=== PATIENT | female | born 1955 | race Caucasian/White ===

== ENCOUNTER 2019-03-05 02:35 | Emergency (ER) | payer OTHER ==
--- NOTE | 2019-03-05 03:21 | ED Physician Documentation ---
General Adult - HISTORIAN Historian: patient, spouse - HPI Stated Complaint: Near syncope, Nausea Chief Complaint: Near Syncope Additional Information: Ms. Coburn is a 63 year old coming to the ER via EMS [facility]. She states that she was well today. She had been at home watching golf and later went to the [employer] with her . She stated that she was doing fine and all of a sudden felt weak, nauseated, and couldn't stand up. Per EMS, she was unresponsive and had urinated in her pants prior to getting in the ambulance. Once in the ambulance, she was able to respond and vital signs were stable. When she was with EMS, she did receive Zofran for nausea and she seemed to start having a reaction to the medicine. She reported hives and erythema on her left arm. Rest of HPI as documented. 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 denies: fever, sweating, recent illness EYES/ENT: none CVS/RESP: none GI/: other (bladder incontinence) MS/SKIN/LYMPH: none NEURO/PSYCH: fainting, dizziness, difficulty walking, difficulty with speech - PAST HX Past History: AMI Surgeries/Procedures: cardiac stent, other (back surgery) - SOCIAL HX Smoking History: greater than 1 pack/day (50 pack year history) Alcohol Use: occasionally (6 beers today) Drug Use: none - FAMILY HX Family History: No - VITAL SIGNS Vital Signs: Vital Signs Temp Pulse Resp BP Pulse Ox 97.1 F L 79 14 148/63 94 03/05/19 02:39 03/05/19 02:39 03/05/19 02:39 03/05/19 02:39 03/05/19 02:39 - REVIEWED ASSESSMENTS Nursing Assessment Reviewed: Yes Vitals Reviewed: Yes Progress - EKG/XRAY/CT EKG: NSR Comments: normal EKG ED Results Lab/Radiology - Orders Orders: ED Orders Category Date Time Status IV Started NOW Care 03/05/19 03:19 Active CBC/PLATELET/DIFF Routine Lab 03/05/19 Ordered CMP Routine Lab 04/15/19 Ordered URINALYSIS Routine Lab 03/05/19 Uncollected EKG WITH COMPARISON Routine Ther 03/05/19 03:18 Ordered General Adult Physical Exam - PHYSICAL EXAM GENERAL APPEARANCE: no distress EENT: eye inspection normal, no signs of dehydration NECK: normal inspection RESPIRATORY: no resp distress, chest non-tender, breath sounds normal CVS: reg rate & rhythm, murmur (holosystolic murmur heard over upper right and left sternal borders-grade 2/6) ABDOMEN: soft, no organomegaly, normal bowel sounds, no distension, non-tender SKIN: warm/dry EXTREMITIES: non-tender, normal range of motion, no edema NEURO: oriented X3, CN's nml as tested, motor nml, sensation nml, mood/affect nml, cognition normal. No: facial droop Discharge Clincal Impression: Syncope, near Referrals: Nancy Hidalgo MD [Primary Care Provider] - 2 Days Additional Instructions: Drink a lot of fluids. Try to eat something at least two times a day. Watch for any further spells. Follow-up with primary care provider in 1-2 weeks. If you have any further symptoms to see your primary care provider or return to the ED. Condition: Stable Disposition: 01 HOME, SELF-CARE Decision to Admit: NO Date of Decison to Admit: 03/05/19 Decision Time: 04:35
[2019-03-05 05:30] VITALS: BP 138/72
[2019-03-05 07:11] LABS: BASOPHILS % 3.2 % (0.0-1.5); EOSINOPHILS % 0.9 % (0.0-6.8); MEAN CORPUSCULAR HEMOGLOBIN 31.9 pg (28.0-34.0); MONOCYTES % 5.4 % (0.0-11.0); NEUTROPHILS # 7.7 # k/uL (1.4-7.7)
[2019-03-05 07:14] LABS: eGFR (Non-African) > 60
[2019-03-05 07:15] LABS: APPEARANCE,URINE CLEAR (CLEAR); COLOR,URINE YELLOW (YELLOW); OCCULT BLOOD,URINE NEGATIVE (NEGATIVE); PH URINE 5.5 (5.0 - 8.0); UROBILINOGEN URINE 0.2 Eu (0.2-1.0)
== END 2019-03-05 05:17 | disposition home or self-care (01) ==
LOC: ED 02:35
DX: R55 Syncope and collapse (principal)
CPT/HCPCS: 36415; 80053; 81002; 85025; 99283; 99284